=== PATIENT | female | born 1960 | race Caucasian/White ===

== ENCOUNTER 2018-04-06 14:26 | Observation (INO) ==
[2018-04-08 08:31] VITALS: BP 105/64
== END 2018-04-08 10:58 | disposition home or self-care (01) ==
LOC: N.EDINP 14:26 → N.ED 14:26 → N.EDINP 18:45 → N.TELEN 18:55
PROVIDERS: ADMIT Internal Medicine Cardiovascular Disease; ATTEND Internal Medicine Cardiovascular Disease